=== PATIENT | male | born 2000 | race Hispanic/Latino ===

== ENCOUNTER 2022-03-07 01:24 | Emergency (ER) | payer OTHER ==
[~2022-03-07] VITALS: Ht 165.1 cm; Wt 53.1 kg
[2022-03-07] MEDS ORDERED: LIDOCAINE HCL 2% VISCOUS 15 ML UDCUP ONE (03:59)
[2022-03-07] MEDS ORDERED: DICYCLOMINE HCL 10 MG/5 ML ML PO ONE (03:59)
[2022-03-07] MEDS ORDERED: MAG/ALUM/SIMETH 30 ML UDCUP ONE (03:59)
[2022-03-07 04:51] VITALS: BP 118/75
[2022-03-07] MEDS ORDERED: PANT40GR PO (05:08)
== END 2022-03-07 05:14 | disposition home or self-care (01) ==
LOC: EDH 01:24
DX: K21.00 Gastro-esophageal reflux disease with esophagitis, without bleeding (principal)